=== PATIENT | female | born 1995 | race Caucasian/White ===

== ENCOUNTER 2019-04-10 21:59 | Emergency (ER) | payer SELFPAY ==
[2019-04-10 22:32] LABS: Urine Blood NEGATIVE (NEG); Urine Glucose NEGATIVE (NEG); Urine Protein NEGATIVE (NEG); Urine Specific Gravity 1.015 (1.005-1.030); Urine pH 5.5 (5.0-7.0)
[2019-04-11] MEDS ORDERED: NA CHLORIDE 0.9% 1,000 ML ONE (00:19)
[2019-04-11 00:48] LABS: Urine Bacteria <20 /HPF (<20); Urine Culture Reflex Order NOT NEEDED; Urine Mucus 1+ /HPF (NONE SEEN); Urine RBC <5 /HPF (NONE SEEN)
[2019-04-11 01:40] LABS: Absolute Neutrophil 8.1 K/uL (1.8-8.0); Basophils % 0.5 % (0-1.3); Eosinophils % 4.3 % (0-4.4); Hematocrit 38.1 % (36.0-45.0); Monocytes % 6.9 % (3.3-12.3); RBC Red Blood Cell Count 4.94 M/uL (3.86-4.86)
[2019-04-11 01:51] LABS: ALT/SGPT 16 U/L (12-78); AST/SGOT 13 U/L (15-37); Albumin 3.4 g/dL (3.4-5.0); Alkaline Phosphatase 72 U/L (45-117); BUN Blood Urea Nitrogen 14 mg/dL (7-18); Bicarbonate 24 mmol/L (21-32); Bilirubin Direct < 0.1 mg/dL (0-0.2); Bilirubin Total 0.3 mg/dL (0.2-1.0); Glucose Level 85 mg/dL (74-106); Lipase 146 U/L (73-393); Potassium 3.8 mmol/L (3.5-5.1); Protein, Total 6.7 g/dL (6.4-8.2); Sodium Level 142 mmol/L (136-145)
[2019-04-11] MEDS ORDERED: KETOROLAC 30 MG/ML INJ ONE (02:21)
[2019-04-11] MEDS ORDERED: AZITHROMYCIN 250 MG TAB ONE (04:21)
[2019-04-11] MEDS ORDERED: MORPHINE 2 MG/ML SYR ONE (04:21)
[2019-04-11] MEDS ORDERED: CEFTRIAXONE/SWI 1gm 1 GM/10 ML SYR ONE (04:22)
--- NOTE | 2019-04-11 04:27 | ER ---
Nurse's Notes [facility] Name: Yaz Bain Age: 23 yrs Sex: Female : 1995 Arrival Date: 04/10/2019 Time: 22:02 Bed 26 Private MD: Diagnosis: Abdominal and pelvic pain;Unspecified ovarian cysts-right ovary Presentation: 04/10 22:10 Presenting complaint: Patient states: I recently has a miscarriage and now I am having ed1 bad pains that drop me to the floor. Transition of care: patient was not received from another setting of care. Onset of symptoms was April 10, 2019. Risk Assessment: Do you want to hurt yourself or someone else? Patient reports no desire to harm self or others. Initial Sepsis Screen: Does the patient meet any 2 criteria? No. Patient's initial sepsis screen is negative. Does the patient have a suspected source of infection? No. Patient's initial sepsis screen is negative. Care prior to arrival: None. 22:10 Method Of Arrival: Ambulatory ed1 22:10 Acuity: JUAN 3 ed1 Triage Assessment: 22:12 General: Appears in no apparent distress. Behavior is calm, cooperative. Pain: ed1 Complains of pain in suprapubic area and right lower quadrant Pain currently is 8 out of 10 on a pain scale. GI: Abdomen is non-distended, Bowel sounds present X 4 quads. Patient currently denies diarrhea, nausea, vomiting. 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 - Social history:: Smoking status: Patient uses tobacco products, smokes one pack cigarettes per day. - Ebola Screening: : Patient negative for fever greater than or equal to 101.5 degrees Fahrenheit, and additional compatible Ebola Virus Disease symptoms Patient denies exposure to infectious person Patient denies travel to an Ebola-affected area in the 21 days before illness onset No symptoms or risks identified at this time. Screenin:20 Abuse screen: Denies threats or abuse. Denies injuries from another. Nutritional ca1 screening: No deficits noted. Tuberculosis screening: No symptoms or risk factors identified. Fall Risk None identified. Assessment: 23:20 General: Appears in no apparent distress. comfortable, Behavior is calm, cooperative, ca1 appropriate for age. Pain: Complains of pain in suprapubic area, right inguinal area and left inguinal area Pain radiates to low back area Pain currently is 4 out of 10 on a pain scale. at worst was 8 out of 10 on a pain scale. Pain began 2-3 days ago. Is intermittent. Neuro: Level of Consciousness is awake, alert, obeys commands, Oriented to person, place, time, situation. Cardiovascular: Heart tones S1 S2 present Capillary refill < 3 seconds Patient's skin is warm and dry. Respiratory: Airway is patent Respiratory effort is even, unlabored, Respiratory pattern is regular, symmetrical, Breath sounds are clear bilaterally. GI: Abdomen is round non-distended, Bowel sounds present X 4 quads. Abd is soft X 4 quads Abdomen is tender to palpation in right lower quadrant and left lower quadrant. : No deficits noted. No signs and/or symptoms were reported regarding the genitourinary system. EENT: No deficits noted. No signs and/or symptoms were reported regarding the EENT system. Derm: Skin is intact, is healthy with good turgor, Skin is pink, warm \T\ dry. Musculoskeletal: Circulation, motion, and sensation intact. Capillary refill < 3 seconds. 04/11 00:15 Reassessment: Patient appears in no apparent distress at this time. Patient and/or ca1 family updated on plan of care and expected duration. Pain level reassessed. Patient is alert, oriented x 3, equal unlabored respirations, skin warm/dry/pink. 00:24 Reassessment: DONE WITH CONTRAST. rv 01:45 Reassessment: awaiting still for CT scan. updated ekg technician thru phone. Reassessment: rv Patient appears in no apparent distress at this time. Patient and/or family updated on plan of care and expected duration. Pain level reassessed. Patient is alert, oriented x 3, equal unlabored respirations, skin warm/dry/pink. Patient is complaining of pain progression. referred to CARL Craft. 03:09 Reassessment: patient taken to CT scan. rv 04:20 Reassessment: Patient and/or family updated on plan of care and expected duration. Pain bb level reassessed. Patient is alert, oriented x 3, equal unlabored respirations, skin warm/dry/pink. pt notified Heather HENRY that she had abdominal pain after the pelvic exam pt medicated see MAR. Pt awaiting results of CT scan. 04:44 Reassessment: Patient is alert, oriented x 3, equal unlabored respirations, skin bb warm/dry/pink. pt verbalized understanding of and agrees to plan of care discharge instructions given pt assisted to exit via wheelchair accompanied by family Patient states feeling better. Vital Signs: 04/10 22:12 BP 125 / 67; Pulse 97; Resp 20; Temp 98.3(O); Pulse Ox 95% on R/A; Weight 79.83 kg; ed1 Height 5 ft. 8 in. (172.72 cm); Pain 8/10; 23:15 BP 122 / 76; Pulse 84; Resp 17 S; Temp 98.1(O); Pulse Ox 100% on R/A; ca1 04/11 01:04 BP 120 / 78; Pulse 76; Resp 17 S; Pulse Ox 100% on R/A; ca1 01:04 BP 117 / 65; Pulse 76; Resp 16 S; Temp 98.3(O); Pulse Ox 100% on R/A; ca1 01:30 BP 129 / 65; Pulse 84; Resp 17; Pulse Ox 98% ; rv 02:00 BP 118 / 57; Pulse 72; Resp 16; Temp 98; Pulse Ox 97% ; rv 02:30 BP 114 / 65; Pulse 73; Resp 15; Pulse Ox 97% ; rv 02:45 BP 110 / 65; Pulse 71; Resp 16; Pulse Ox 97% ; rv 04:21 BP 124 / 70; Pulse 64; Resp 16 S; Pulse Ox 100% on R/A; bb 04:44 Temp 97.8(O); bb 04/10 22:12 Body Mass Index 26.76 (79.83 kg, 172.72 cm) ed1 ED Course: 04/10 22:02 Patient arrived in ED. ds1 22:11 Triage completed. ed1 22:12 Arm band placed on left wrist. Patient placed in waiting room, Patient notified of wait ed1 time. 23:17 Nakul Jarrett PA is PHCP. cp 23:17 Nakul Tran MD is Attending Physician. cp 23:20 Patient has correct armband on for positive identification. Placed in gown. Bed in low ca1 position. Call light in reach. Side rails up X 1. Pulse ox on. NIBP on. Warm blanket given. 23:53 Shala Acosta, RN is Primary Nurse. ca1 04/11 00:00 Inserted saline lock: 20 gauge in right antecubital area, using aseptic technique. ca1 Blood collected. 03:42 CT Abd/Pelvis - W/Contrast: give oral contrast In Process Unspecified. EDMS 03:44 Assist provider with pelvic exam: Set up pelvic tray. Performed by Nakul HENRY bb Specimens sent to lab. Patient tolerated well. 03:50 CT completed. Patient tolerated procedure well. Patient moved to CT via stretcher. eh Patient moved back from CT. 04:19 GC (GONORR/CHLAMYDIA) Probe Sent. bb 04:26 Vinh Leblanc MD is Referral Physician. cp 04:46 IV discontinued, intact, bleeding controlled, No redness/swelling at site. Pressure bb dressing applied. Administered Medications: 00:09 Drug: NS 0.9% 1000 ml Route: IV; Rate: 1 bolus; Site: right antecubital; ca1 01:00 Follow up: IV Status: Completed infusion; IV Intake: 100ml bb 02:10 Drug: TORadol 30 mg Route: IVP; Site: right antecubital; rv 04:47 Follow up: Response: No adverse reaction bb 04:15 Drug: Zithromax 1 grams Route: PO; bb 04:47 Follow up: Response: No adverse reaction bb 04:15 Drug: morphine 2 mg Route: IVP; Site: right antecubital; bb 04:47 Follow up: Response: No adverse reaction; Pain is decreased bb 04:17 Drug: Rocephin 1 grams Route: IV; Rate: bolus; Site: right antecubital; bb 04:27 Follow up: IV Status: Completed infusion; IV Intake: 10ml bb Intake: 01:00 IV: 100ml; Total: 100ml. bb 04:27 IV: 10ml; Total: 110ml. bb Outcome: 04:27 Discharge ordered by . cp 04:45 Discharged to home via wheelchair, with family. bb 04:45 Condition: stable 04:45 Discharge instructions given to patient, Instructed on discharge instructions, follow up and referral plans. medication usage, Demonstrated understanding of instructions, follow-up care, medications, Prescriptions given X 4. 04:48 Patient left the ED. bb Signatures: Dispatcher [employer] EDMS Estrada Higuera Rebeca Hamilton ds1 Bridget Diaz RN RN bb Erna Sutton RN RN ed1 Nakul Jarrett PA PA cp Vicente, Ronaldo RN RN rv Shala Acosta RN RN ca1
--- NOTE | 2019-04-11 04:27 | EDPHYS ---
Physician Documentation [facility] Name: Yaz Bain Age: 23 yrs Sex: Female : 1995 Arrival Date: 04/10/2019 Time: 22:02 Bed 26 Private MD: OMAR Physician Nakul Tran HPI: 04/10 23:30 This 23 yrs old Female presents to ER via Ambulatory with complaints of cp Abdominal Pain. 23:30 The patient presents with abdominal pain in the lower abdomen. cp 23:30 Onset: The symptoms/episode began/occurred last month. The symptoms do not radiate. cp Associated signs and symptoms: Pertinent negatives: constipation, diarrhea, dysuria, fever, vaginal discharge, vomiting, vaginal bleeding. Patient reports recent and miscarriage last month and that pain started after miscarriage last month. Patient reports she believes she was due to having symptoms past pregnancies and admits she is currently using the Implanon for control and did not take a test. Patient denies any current vaginal bleeding and unsure of last menstrual cycle. 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 - Social history:: Smoking status: Patient uses tobacco products, smokes one pack cigarettes per day. - Ebola Screening: : Patient negative for fever greater than or equal to 101.5 degrees Fahrenheit, and additional compatible Ebola Virus Disease symptoms Patient denies exposure to infectious person Patient denies travel to an Ebola-affected area in the 21 days before illness onset No symptoms or risks identified at this time. ROS: 23:45 Constitutional: Negative for body aches, chills, fever, poor PO intake. cp 23:45 Eyes: Negative for injury, pain, redness, and discharge. cp 23:45 ENT: Negative for drainage from ear(s), ear pain, sore throat, difficulty swallowing, difficulty handling secretions. 23:45 Cardiovascular: Negative for chest pain, palpitations. 23:45 Respiratory: Negative for cough, shortness of breath, wheezing. 23:45 Abdomen/GI: Positive for abdominal pain, Negative for diarrhea, constipation, anorexia, black/tarry stool, rectal bleeding. 23:45 Back: Negative for pain at rest, pain with movement, radiated pain. 23:45 : Negative for urinary symptoms, flank pain, vaginal bleeding, vaginal discharge. 23:45 Skin: Negative for cellulitis, rash. 23:45 Neuro: Negative for altered mental status, headache, weakness. 23:45 All other systems are negative. Exam: 23:50 Constitutional: The patient appears in no acute distress, alert, awake, non-toxic, well cp developed, well nourished. 23:50 Head/Face: Normocephalic, atraumatic. cp 23:50 Eyes: Periorbital structures: appear normal, Conjunctiva: normal, no exudate, no injection, Lids and lashes: appear normal, bilaterally. 23:50 ENT: External ear(s): are unremarkable, Nose: is normal, Mouth: Lips: moist, Oral mucosa: pink and intact, moist, Posterior pharynx: is normal, airway is patent, no erythema, no exudate. 23:50 Chest/axilla: Inspection: normal, Palpation: is normal, no crepitus, no tenderness. 23:50 Cardiovascular: Rate: normal, Rhythm: regular. 23:50 Respiratory: the patient does not display signs of respiratory distress, Respirations: normal, no use of accessory muscles, no retractions, no splinting, no tachypnea, labored breathing, is not present, Breath sounds: are clear throughout, no decreased breath sounds, no stridor, no wheezing. 23:50 Abdomen/GI: Inspection: abdomen appears normal, Bowel sounds: active, all quadrants, Palpation: soft, in all quadrants, moderate abdominal tenderness, in the suprapubic area and right lower quadrant, rebound tenderness, is not appreciated, involuntary guarding, is not appreciated. 23:50 Back: pain, is absent, ROM is normal. 04/11 03:41 : Pelvic Exam: bimanual exam reveals cervical motion tenderness, os that is closed, cp uterine tenderness, right adnexal tenderness, no adnexal mass on right, no adnexal mass on left, discharge, white, yellow, the nurse was present for the exam, Sexual behavior: the patient is sexually active, and reports a single partner, method of control is implenom. Vital Signs: 04/10 22:12 BP 125 / 67; Pulse 97; Resp 20; Temp 98.3(O); Pulse Ox 95% on R/A; Weight 79.83 kg; ed1 Height 5 ft. 8 in. (172.72 cm); Pain 8/10; 23:15 BP 122 / 76; Pulse 84; Resp 17 S; Temp 98.1(O); Pulse Ox 100% on R/A; ca1 04/11 01:04 BP 120 / 78; Pulse 76; Resp 17 S; Pulse Ox 100% on R/A; ca1 01:04 BP 117 / 65; Pulse 76; Resp 16 S; Temp 98.3(O); Pulse Ox 100% on R/A; ca1 01:30 BP 129 / 65; Pulse 84; Resp 17; Pulse Ox 98% ; rv 02:00 BP 118 / 57; Pulse 72; Resp 16; Temp 98; Pulse Ox 97% ; rv 02:30 BP 114 / 65; Pulse 73; Resp 15; Pulse Ox 97% ; rv 02:45 BP 110 / 65; Pulse 71; Resp 16; Pulse Ox 97% ; rv 04:21 BP 124 / 70; Pulse 64; Resp 16 S; Pulse Ox 100% on R/A; bb 04:44 Temp 97.8(O); bb 04/10 22:12 Body Mass Index 26.76 (79.83 kg, 172.72 cm) ed1 MDM: 04/10 23:17 Patient medically screened. cp 04/11 00:00 Differential diagnosis: appendicitis, Endometriosis, Ovarian Torsion, Pelvic cp Inflammatory Disease, Pyelonephritis, Ureterolithiasis, urinary tract infection. 04:25 Data reviewed: vital signs, nurses notes, lab test result(s), radiologic studies, CT cp scan, and as a result, I will discharge patient. 04:25 Counseling: I had a detailed discussion with the patient and/or guardian regarding: the cp historical points, exam findings, and any diagnostic results supporting the discharge/admit diagnosis, lab results, radiology results, the need for outpatient follow up, an OB/Gyne specialist, to return to the emergency department if symptoms worsen or persist or if there are any questions or concerns that arise at home. Response to treatment: the patient's symptoms have markedly improved after treatment, and as a result, I will discharge patient. Special discussion: Based on the patient's Hx, exam, and Dx evaluation, there is no indication for emergent surgery or inpatient Tx. It is understood by the patient/guardian that if the Sx's persist or worsen they need to return immediately for re-evaluation. ED course: VSS. Pain improved with meds. Will discharge to home for continued monitoring. 04/10 22:25 Order name: Urine Dipstick--Ancillary (enter results); Complete Time: 23: ed1 04/10 22:25 Order name: Urine --Ancillary (enter results); Complete Time: : ed1 04/10 23:21 Order name: Urine Microscopic Only; Complete Time: 02:01 cp 04/11 02:02 Interpretation: Normal except: SQEPI 5-10. cp 04/10 23:30 Order name: Basic Metabolic Panel; Complete Time: 02:01 cp 04/11 02:02 Interpretation: Normal except: CL 110; GFR 85; CA 8.1. cp 04/10 23:30 Order name: CBC with Diff; Complete Time: 02:01 cp 04/11 03:25 Interpretation: Normal except: WBC 13.7; RBC 4.94; MCV 77.1; MCH 25.5; NEUT A 8.1; EOSA cp 0.6. 04/10 23:30 Order name: Creatinine for Radiology; Complete Time: 02:01 cp 04/10 23:30 Order name: Hepatic Function; Complete Time: 02:01 cp 04/11 02:02 Interpretation: Normal except: AST 13; A/G 1.0. cp 04/10 23:30 Order name: Lipase; Complete Time: 02:01 cp 04/10 23:30 Order name: Test, Serum; Complete Time: 02:01 cp 04/11 02:02 Interpretation: Reviewed. cp 04/10 23:32 Order name: CT Abd/Pelvis - W/Contrast: give oral contrast cp 04/11 03:45 Order name: GC (GONORR/CHLAMYDIA) Probe cp 04/11 03:45 Order name: Wet Prep cp 04/11 03:46 Order name: GC (Javier/Chl) Probe CX/URE EDMS 04/10 23:30 Order name: IV Saline Lock; Complete Time: 00:09 cp 04/10 23:30 Order name: Labs collected and sent; Complete Time: 00:09 cp Administered Medications: 00:09 Drug: NS 0.9% 1000 ml Route: IV; Rate: 1 bolus; Site: right antecubital; ca1 01:00 Follow up: IV Status: Completed infusion; IV Intake: 100ml bb 02:10 Drug: TORadol 30 mg Route: IVP; Site: right antecubital; rv 04:47 Follow up: Response: No adverse reaction bb 04:15 Drug: Zithromax 1 grams Route: PO; bb 04:47 Follow up: Response: No adverse reaction bb 04:15 Drug: morphine 2 mg Route: IVP; Site: right antecubital; bb 04:47 Follow up: Response: No adverse reaction; Pain is decreased bb 04:17 Drug: Rocephin 1 grams Route: IV; Rate: bolus; Site: right antecubital; bb 04:27 Follow up: IV Status: Completed infusion; IV Intake: 10ml bb Disposition: 06:31 Co-signature as Attending Physician, Nakul Tran MD I agree with the assessment and mamta plan of care. Disposition: 04/11/19 04:27 Discharged to Home. Impression: Abdominal and pelvic pain, Unspecified ovarian cysts - right ovary. - Condition is Stable. - Discharge Instructions: Ovarian Cyst, Pelvic Pain, Female. - Prescriptions for Ibuprofen 800 mg Oral Tablet - take 1 tablet by ORAL route every 8 hours As needed take with food; 30 tablet. Tylenol- Codeine #3 300-30 mg Oral Tablet - take 2 tablets by ORAL route every 8 hours As needed; 15 tablet. Doxycycline Hyclate 100 mg Oral Tablet - take 1 tablet by ORAL route every 12 hours; 20 tablet. Metronidazole 500 mg Oral Tablet - take 1 tablet by ORAL route every 8 hours; 30 tablet. - Medication Reconciliation Form, Thank You Letter, Antibiotic Education, Prescription Opioid Use form. - Follow up: Vinh Leblanc MD; When: 1 week; Reason: Recheck today's complaints. - Problem is new. - Symptoms have improved. Signatures: Dispatcher [employer] Nakul Cole MD MD cha Ballard, Brenda RN RN bb Erna Sutton RN RN ed1 Nakul Jarrett PA PA cp Vicente, Ronaldo RN RN rv Acob, Shala, RN RN ca1 Corrections: (The following items were deleted from the chart) 02:02 02:02 Normal except: CL 110; GFR 85. cp cp 03:25 02:02 Normal except: WBC 13.7; RBC 4.94; MCV 77.1; MCH 25.5; NEUT A 8.1. cp cp 04:48 04:27 04/11/2019 04:27 Discharged to Home. Impression: Abdominal and pelvic pain; bb Unspecified ovarian cysts - right ovary. Condition is Stable. Forms are Medication Reconciliation Form, Thank You Letter, Antibiotic Education, Prescription Opioid Use. Follow up: Vinh Leblanc; When: 1 week; Reason: Recheck today's complaints. Problem is new. Symptoms have improved. cp
[2019-04-11 05:12] VITALS: BP 124/70; TEMP 97.8; O2SAT 100
--- NOTE | 2019-04-11 10:18 | RAD REPORT ---
EXAM DESCRIPTION: CT Abdomen and Pelvis With Intravenous Contrast CLINICAL HISTORY: The patient is 23 years old and is Female; lower abdomen pain TECHNIQUE: Axial computed tomography images of the abdomen and pelvis with intravenous contrast. S agittal and coronal reformatted images were created and reviewed. This CT exam was performed using one or more of the following dose reduction techniques: automated exposure control, adjustment of t he mA and/or kV according to patient size, and/or use of iterative reconstruction technique. COMPARISON: No relevant prior studies available. FINDINGS: LUNG BASES: Unremarkable. No mass. No consolidation. ABDOMEN: LIVER: Unremarkable. No mass. GALLBLADDER AND BILE DUCTS: The gallbladder is contracted. PANCREAS: No ductal dilation. No mass. SPLEEN: Unremarkable. ADRENALS: Unremarkable. No mass. KIDNEYS AND URETERS: Unremarkable. No solid mass. No hydronephrosis. STOMACH AND BOWEL: The stomach is well distended with food contents. The small bowel is normal i n caliber. Oral contrast is present within the distal small bowel. Minimal contrast is noted within t he cecum. Stool is present throughout the colon. There is no mucosal thickening or evidence of bowel obstruction. PELVIS: APPENDIX: The appendix is normal in caliber without surrounding inflammation. BLADDER: The bladder is well distended. REPRODUCTIVE: A 2.9 cm right ovarian cyst is present. The uterus and left ovary are normal. ABDOMEN and PELVIS: INTRAPERITONEAL SPACE: Unremarkable. No free air. No significant fluid collection. BONES/JOINTS: No acute fracture. SOFT TISSUES: The soft tissues are normal. VASCULATURE: Unremarkable. No abdominal aortic aneurysm. LYMPH NODES: A few scattered central mesenteric and right lower quadrant lymph nodes are present . IMPRESSION: 1. No bowel obstruction. Normal appendix. 2. Few scattered mesenteric lymph nodes which may be secondary to mesenteric adenitis in the [facility] clinical setting. 3. Right ovarian cyst. No follow-up imaging recommended. Electronically signed by: Nicolasa Tavera MD 04/11/2019 3:53 AM CDT Due to temporary technical issues with the PACS/Fluency reporting system, reports are being signed by the in house radiologist as a courtesy to ensure prompt reporting. The interpreting radiologist is f ully responsible for the content of the report.
== END 2019-04-11 04:48 | disposition home or self-care (01) ==
LOC: ER 21:59
DX: N83.201 Unspecified ovarian cyst, right side (principal); F17.210 Nicotine dependence, cigarettes, uncomplicated; Z88.8 Allergy status to other drugs, medicaments and biological substances
CPT/HCPCS: 36415; 74177; 80048; 80076; 81003; 81015; 81025; 83690; 84703; 85025; 87210; 87490; 87590; 96361; 96374; 96375; 99285; J0696; J2270; J7030; Q9967

== ENCOUNTER 2019-06-14 18:57 | Emergency (ER) | payer OTHER, SELFPAY ==
--- OUTSIDE RECORDS SUMMARY | 2019-06-14 19:00 | XMS REPORT ---
:1995 [facility] Address [address] [place] [address] Care Team Providers Name Role Phone Unavailable Unavailable Unavailable Problems This patient has no known problems. Allergies, Adverse Reactions, Alerts This patient has no known allergies or adverse reactions. Medications This patient has no known medications.
[2019-06-14] MEDS ORDERED: NA CHLORIDE 0.9% 1,000 ML ONE (20:16)
[2019-06-14 20:19] LABS: Basophils % 0.4 % (0-1.3); Hematocrit 40.3 % (36.0-45.0); Lymphocytes % 31.2 % (15.3-44.8); MPV 8.7 fL (7.6-11.3); RBC Red Blood Cell Count 5.13 M/uL (3.86-4.86)
[2019-06-14 20:26] LABS: Potassium 3.9 mmol/L (3.5-5.1)
[2019-06-14 20:39] LABS: Specific Gravity 1.015 (1.005-1.030)
[2019-06-14 20:42] LABS: Urine Blood 3+ (NEG); Urine Glucose NEGATIVE (NEG); Urine Protein 2+ (NEG); Urine pH 5.5 (5.0-7.0)
--- NOTE | 2019-06-14 20:47 | ER ---
Nurse's Notes [facility] Name: Yaz Bain Age: 23 yrs Sex: Female : 1995 Arrival Date: 06/14/2019 Time: 19:02 Bed 13 Private MD: Diagnosis: Dysmenorrhea, unspecified Presentation: 06/14 19:03 Presenting complaint: Patient states: Vaginal bleeding for 2 months. Reports 1.5 pads aj per hour. Transition of care: patient was not received from another setting of care. Onset of symptoms was March 2019. Risk Assessment: Do you want to hurt yourself or someone else? Patient reports no desire to harm self or others. Initial Sepsis Screen: Does the patient meet any 2 criteria? No. Patient's initial sepsis screen is negative. Does the patient have a suspected source of infection? No. Patient's initial sepsis screen is negative. Care prior to arrival: None. 19:03 Method Of Arrival: Ambulatory aj 19:03 Acuity: JUAN 3 aj Triage Assessment: 19:04 General: Appears in no apparent distress. comfortable, Behavior is calm, cooperative, aj appropriate for age. Pain: Denies pain. Neuro: Level of Consciousness is awake, alert, obeys commands, Oriented to person, place, time, situation, Appropriate for age. Respiratory: Airway is patent Trachea midline Respiratory effort is even, unlabored, Respiratory pattern is regular, symmetrical. : Reports vaginal bleeding that is heavy flow. Derm: Skin is intact, is healthy with good turgor, Skin is pink, warm \T\ dry. normal. 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 - Social history:: Smoking status: Patient/guardian denies using tobacco. - Ebola Screening: : Patient negative for fever greater than or equal to 101.5 degrees Fahrenheit, and additional compatible Ebola Virus Disease symptoms Patient denies exposure to infectious person Patient denies travel to an Ebola-affected area in the 21 days before illness onset No symptoms or risks identified at this time. - Family history:: not pertinent. Screenin:00 Abuse screen: Denies threats or abuse. Denies injuries from another. Nutritional ak1 screening: No deficits noted. Tuberculosis screening: No symptoms or risk factors identified. Fall Risk None identified. Assessment: 19:50 General: Appears in no apparent distress. comfortable, Behavior is calm, cooperative, jb4 appropriate for age. Pain: Denies pain. Neuro: Level of Consciousness is awake, alert, obeys commands, Oriented to person, place, time, situation. Cardiovascular: Patient's skin is warm and dry. Respiratory: Airway is patent Respiratory effort is even, unlabored, Respiratory pattern is regular, symmetrical. GI: No signs and/or symptoms were reported involving the gastrointestinal system. : Reports vaginal bleeding that is bright red, heavy flow since 2 months. 19:50 EENT: No signs and/or symptoms were reported regarding the EENT system. Derm: Skin is jb4 intact, Skin is pink, warm \T\ dry. Musculoskeletal: Circulation, motion, and sensation intact. Range of motion: intact in all extremities. Vital Signs: 19:04 BP 128 / 70; Pulse 83; Resp 16; Temp 98.3; Pulse Ox 99% on R/A; Weight 83.91 kg; Height aj 5 ft. 8 in. (172.72 cm); 20:30 BP 112 / 65; Pulse 63; Resp 16; Pulse Ox 100% on R/A; jb4 20:50 BP 117 / 78 Supine; Pulse 61; lt1 20:50 BP 120 / 80 Sitting; Pulse 64; lt1 20:50 BP 124 / 74 Standing; Pulse 75; Resp 16; Temp 98.3(O); Pulse Ox 100% ; lt1 19:04 Body Mass Index 28.13 (83.91 kg, 172.72 cm) ED Course: 19:02 Patient arrived in ED. mr 19:04 Triage completed. aj 19:04 Arm band placed on left wrist. Patient placed in an exam room. aj 19:10 Dangelo Roy, NELL is Primary Nurse. jb4 19:23 Nakul Tran MD is Attending Physician. mamta 20:46 Terrell Morse MD is Referral Physician. mamta 21:00 No provider procedures requiring assistance completed. IV discontinued, intact, ak1 bleeding controlled, No redness/swelling at site. Pressure dressing applied, 20g IV to right AC discontinued prior to discharge. Administered Medications: 20:04 Drug: NS 0.9% 1000 ml Route: IV; Rate: 1 bolus; Site: right antecubital; jb4 21:00 Follow up: IV Status: Completed infusion; IV Intake: 1000ml ak1 Intake: 21:00 IV: 1000ml; Total: 1000ml. ak1 Outcome: 20:46 Discharge ordered by . mamta 21:00 Discharged to home ambulatory, with family. ak1 21:00 Condition: stable 21:00 Discharge instructions given to patient, family, Instructed on discharge instructions, follow up and referral plans. no drinking with medication, no driving heavy equipment, medication usage, safe sex practices, Demonstrated understanding of instructions, follow-up care, medications, Prescriptions given X 3. 21:01 Patient left the ED. ak1 Signatures: Sophia Sage, RN Nakul Walter MD MD cha Rivera, Mary mr Krenek, Hawa RN RN ak1 Dangelo Roy RN RN jb Ynes Perez [facility]
--- NOTE | 2019-06-14 20:48 | EDPHYS ---
Physician Documentation [facility] Name: Yaz Bain Age: 23 yrs Sex: Female : 1995 Arrival Date: 06/14/2019 Time: 19:02 Bed 13 Private MD: ED Physician Nakul Tran HPI: 06/14 20:06 This 23 yrs old Female presents to ER via Ambulatory with complaints of mamta Vaginal Bleeding, Dizziness. 20:06 The patient presents with vaginal bleeding that is. Onset: The symptoms/episode mamta began/occurred 2 month(s) ago. Modifying factors: The symptoms are alleviated by nothing, the symptoms are aggravated by nothing. Associated signs and symptoms: The patient has no apparent associated signs or symptoms. Severity of symptoms: At their worst the symptoms were mild, in the emergency department the symptoms are unchanged. The patient is sexually active, reportedly has a single partner. 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 - Social history:: Smoking status: Patient/guardian denies using tobacco. - Ebola Screening: : Patient negative for fever greater than or equal to 101.5 degrees Fahrenheit, and additional compatible Ebola Virus Disease symptoms Patient denies exposure to infectious person Patient denies travel to an Ebola-affected area in the 21 days before illness onset No symptoms or risks identified at this time. - Family history:: not pertinent. ROS: 20:06 Constitutional: Negative for fever, chills, and weight loss, Eyes: Negative for injury, mamta pain, redness, and discharge, ENT: Negative for injury, pain, and discharge, Neck: Negative for injury, pain, and swelling, Cardiovascular: Negative for chest pain, palpitations, and edema, Respiratory: Negative for shortness of breath, cough, wheezing, and pleuritic chest pain, Abdomen/GI: Negative for abdominal pain, nausea, vomiting, diarrhea, and constipation, Back: Negative for injury and pain, MS/Extremity: Negative for injury and deformity, Skin: Negative for injury, rash, and discoloration, Neuro: Negative for headache, weakness, numbness, tingling, and seizure, Psych: Negative for depression, anxiety, suicide ideation, homicidal ideation, and hallucinations, Allergy/Immunology: Negative for hives, rash, and allergies, Endocrine: Negative for neck swelling, polydipsia, polyuria, polyphagia, and marked weight changes, Hematologic/Lymphatic: Negative for swollen nodes, abnormal bleeding, and unusual bruising. 20:06 : Positive for vaginal bleeding. Exam: 20:06 Constitutional: This is a well developed, well nourished patient who is awake, alert, mamta and in no acute distress. Head/Face: Normocephalic, atraumatic. Eyes: Pupils equal round and reactive to light, extra-ocular motions intact. Lids and lashes normal. Conjunctiva and sclera are non-icteric and not injected. Cornea within normal limits. Periorbital areas with no swelling, redness, or edema. ENT: Nares patent. No nasal discharge, no septal abnormalities noted. Tympanic membranes are normal and external auditory canals are clear. Oropharynx with no redness, swelling, or masses, exudates, or evidence of obstruction, uvula midline. Mucous membranes moist. Neck: Trachea midline, no thyromegaly or masses palpated, and no cervical lymphadenopathy. Supple, full range of motion without nuchal rigidity, or vertebral point tenderness. No Meningismus. Chest/axilla: Normal chest wall appearance and motion. Nontender with no deformity. No lesions are appreciated. Cardiovascular: Regular rate and rhythm with a normal S1 and S2. No gallops, murmurs, or rubs. Normal PMI, no JVD. No pulse deficits. Respiratory: Lungs have equal breath sounds bilaterally, clear to auscultation and percussion. No rales, rhonchi or wheezes noted. No increased work of breathing, no retractions or nasal flaring. Abdomen/GI: Soft, non-tender, with normal bowel sounds. No distension or tympany. No guarding or rebound. No evidence of tenderness throughout. Back: No spinal tenderness. No costovertebral tenderness. Full range of motion. Skin: Warm, dry with normal turgor. Normal color with no rashes, no lesions, and no evidence of cellulitis. MS/ Extremity: Pulses equal, no cyanosis. Neurovascular intact. Full, normal range of motion. Neuro: Awake and alert, GCS 15, oriented to person, place, time, and situation. Cranial nerves II-XII grossly intact. Motor strength 5/5 in all extremities. Sensory grossly intact. Cerebellar exam normal. Normal gait. Psych: Awake, alert, with orientation to person, place and time. Behavior, mood, and affect are within normal limits. Vital Signs: 19:04 BP 128 / 70; Pulse 83; Resp 16; Temp 98.3; Pulse Ox 99% on R/A; Weight 83.91 kg; Height aj 5 ft. 8 in. (172.72 cm); 20:30 BP 112 / 65; Pulse 63; Resp 16; Pulse Ox 100% on R/A; jb4 20:50 BP 117 / 78 Supine; Pulse 61; lt1 20:50 BP 120 / 80 Sitting; Pulse 64; lt1 20:50 BP 124 / 74 Standing; Pulse 75; Resp 16; Temp 98.3(O); Pulse Ox 100% ; lt1 19:04 Body Mass Index 28.13 (83.91 kg, 172.72 cm) aj MDM: 19:23 Patient medically screened. [facility] 20:10 Data reviewed: vital signs, nurses notes, lab test result(s), CBC, electrolytes, mamta hepatic panel. 06/14 19:24 Order name: Abo/rh Typing; Complete Time: 20:45 [facility] 06/14 19:24 Order name: Basic Metabolic Panel; Complete Time: 20:45 [facility] 06/14 19:24 Order name: CBC with Diff; Complete Time: 20:45 [facility] 06/14 20:34 Order name: Urine Dipstick--Ancillary (enter results); Complete Time: 20:45 [facility] 06/14 20:35 Order name: Test, Urine; Complete Time: 20:45 [facility] 06/14 19:24 Order name: Urine Test (obtain specimen); Complete Time: 20:55 [facility] 06/14 19:24 Order name: IV Saline Lock; Complete Time: 20:05 [facility] 06/14 19:24 Order name: Labs collected and sent; Complete Time: 20:05 [facility] 06/14 19:24 Order name: NPO; Complete Time: 20:05 [facility] 06/14 19:24 Order name: Urine Dipstick-Ancillary (obtain specimen); Complete Time: 21:00 [facility] 06/14 20:06 Order name: Orthostatics; Complete Time: 20:55 [facility] Administered Medications: 20:04 Drug: NS 0.9% 1000 ml Route: IV; Rate: 1 bolus; Site: right antecubital; jb4 21:00 Follow up: IV Status: Completed infusion; IV Intake: 1000ml ak1 Disposition: 06/14/19 20:46 Discharged to Home. Impression: Dysmenorrhea, unspecified. - Condition is Stable. - Discharge Instructions: Dysmenorrhea, Pelvic Pain, Female, Dysfunctional Uterine Bleeding, Pelvic Pain, Female, [id number]. - Prescriptions for Ibuprofen 600 mg Oral Tablet - take 1 tablet by ORAL route every 8 hours As needed take with food; 21 tablet. Vitamin 27- 0.8 mg Oral Tablet - take 1 tablet by ORAL route once daily; 30 tablet. Tylenol- Codeine #3 300-30 mg Oral Tablet - take 2 tablets by ORAL route every 6 hours As needed; 14 tablet. - Medication Reconciliation Form, Thank You Letter, Antibiotic Education, Prescription Opioid Use form. - Follow up: Private Physician; When: 2 - 3 days; Reason: Recheck today's complaints, Continuance of care, Re-evaluation by your physician. Follow up: Terrell Morse MD; When: 2 - 3 days; Reason: Recheck today's complaints, Re-evaluation by your physician. - Problem is new. - Symptoms have improved. Signatures: Dispatcher [employer] EDSophia Torres RN RN aj Anderson, Corey, MD MD cha Krenek, Amber, RN RN ak1 Dangelo Roy RN RN jb4 Corrections: (The following items were deleted from the chart) 20:47 20:46 06/14/2019 20:46 Discharged to Home. Impression: Dysmenorrhea, unspecified. [facility] Condition is Stable. Discharge Instructions: Dysmenorrhea, Pelvic Pain, Female, Dysfunctional Uterine Bleeding, Pelvic Pain, Female, [id number]. Prescriptions for Ibuprofen 600 mg Oral Tablet - take 1 tablet by ORAL route every 8 hours As needed take with food; 21 tablet, Vitamin 27-0.8 mg Oral Tablet - take 1 tablet by ORAL route once daily; 30 tablet, Tylenol-Codeine #3 300-30 mg Oral Tablet - take 2 tablets by ORAL route every 6 hours As needed; 14 tablet. and Forms are Medication Reconciliation Form, Thank You Letter, Antibiotic Education, Prescription Opioid Use. Follow up: Private Physician; When: 2 - 3 days; Reason: Recheck today's complaints, Continuance of care, Re-evaluation by your physician. Problem is new. Symptoms have improved. [facility] 21:01 20:47 06/14/2019 20:46 Discharged to Home. Impression: Dysmenorrhea, unspecified. ak1 Condition is Stable. Discharge Instructions: Dysmenorrhea, Pelvic Pain, Female, Dysfunctional Uterine Bleeding, Pelvic Pain, Female, [id number]. Prescriptions for Ibuprofen 600 mg Oral Tablet - take 1 tablet by ORAL route every 8 hours As needed take with food; 21 tablet, Vitamin 27-0.8 mg Oral Tablet - take 1 tablet by ORAL route once daily; 30 tablet, Tylenol-Codeine #3 300-30 mg Oral Tablet - take 2 tablets by ORAL route every 6 hours As needed; 14 tablet. and Forms are Medication Reconciliation Form, Thank You Letter, Antibiotic Education, Prescription Opioid Use. Follow up: Private Physician; When: 2 - 3 days; Reason: Recheck today's complaints, Continuance of care, Re-evaluation by your physician. Follow up: Terrell Morse; When: 2 - 3 days; Reason: Recheck today's complaints, Re-evaluation by your physician. Problem is new. Symptoms have improved. [facility]
== END 2019-06-14 21:01 | disposition home or self-care (01) ==
LOC: ER 18:57
DX: N94.6 Dysmenorrhea, unspecified (principal)
CPT/HCPCS: 36415; 80048; 81003; 81025; 85025; 86900; 86901; 96360; 99283; J7030

== ENCOUNTER 2019-08-10 13:44 | Emergency (ER) | payer SELFPAY ==
--- OUTSIDE RECORDS SUMMARY | 2019-08-10 13:47 | XMS REPORT ---
:1995 [facility] [address] [place] [address] Care Team Providers Name Role Phone Unavailable Unavailable Unavailable Problems This patient has no known problems. Allergies, Adverse Reactions, Alerts This patient has no known allergies or adverse reactions. Medications This patient has no known medications.
[2019-08-10] MEDS ORDERED: ONDANSETRON 4 MG (ODT) TAB ONE (14:16)
[2019-08-10] MEDS ORDERED: IPRATROPIUM BROM 0.5MG/2.5ML ONE (14:23)
[2019-08-10] MEDS ORDERED: ALBUTEROL 2.5 MG/3 ML NEB SOL ONE (14:23)
[2019-08-10 15:21] LABS: Urine Blood 3+ (NEG); Urine Glucose NEGATIVE (NEG); Urine Protein 1+ (NEG); Urine Specific Gravity 1.025 (1.005-1.030); Urine pH 5.5 (5.0-7.0)
[2019-08-10] MEDS ORDERED: IBUPROFEN 400 MG TAB ONE (15:35)
--- NOTE | 2019-08-10 15:37 | ER ---
Nurse's Notes [facility] Name: Yaz Bain Age: 23 yrs Sex: Female : 1995 Arrival Date: 08/10/2019 Time: 13:47 Bed 28 Private MD: Diagnosis: Acute upper respiratory infection, unspecified Presentation: 08/10 13:51 Presenting complaint: N/V/D. headache, body aches, chills, subjective fever, abdominal hb pain, and painful productive cough with green sputum x 3 days. Tolerating fluids. Transition of care: patient was not received from another setting of care. Onset of symptoms was August 07, 2019. Risk Assessment: Do you want to hurt yourself or someone else? Patient reports no desire to harm self or others. Initial Sepsis Screen: Does the patient meet any 2 criteria? No. Patient's initial sepsis screen is negative. Does the patient have a suspected source of infection? No. Patient's initial sepsis screen is negative. Care prior to arrival: Medication(s) given: DayQuil at 0830. 13:51 Method Of Arrival: Ambulatory hb 13:51 Acuity: JUAN 4 hb Historical: - Allergies: 13:54 cherries; hb 13:54 Flexeril (Wheezing); wheezing; hb - Immunization history:: Adult Immunizations up to date. - Social history:: Smoking status: Patient uses tobacco products, denies chronic smoking, but will smoke occasionally. - Ebola Screening: : No symptoms or risks identified at this time. Screenin:46 Abuse screen: Denies threats or abuse. Denies injuries from another. Nutritional rv screening: No deficits noted. Tuberculosis screening: No symptoms or risk factors identified. Fall Risk None identified. Assessment: 14:45 General: Appears in no apparent distress. comfortable, Behavior is calm, cooperative. rv Pain: Denies pain. Neuro: Level of Consciousness is awake, alert, obeys commands, Oriented to person, place, time, situation. Cardiovascular: Patient's skin is warm and dry. Respiratory: Airway is patent Parent/caregiver reports the patient having cough that is persistent. GI: Abdomen is round non-distended, Reports nausea, vomiting. : No signs and/or symptoms were reported regarding the genitourinary system. EENT: No signs and/or symptoms were reported regarding the EENT system. Derm: Skin is intact. Musculoskeletal: No signs and/or symptoms reported regarding the musculoskeletal system. Vital Signs: 13:54 BP 138 / 76; Pulse 100; Resp 16; Temp 98.5; Pulse Ox 100% on R/A; Weight 76.2 kg; hb Height 5 ft. 7 in. (170.18 cm); Pain 6/10; 15:00 BP 119 / 64; Pulse 90; Resp 17; Pulse Ox 100% on R/A; rv 15:29 BP 111 / 65; Pulse 87; Resp 17; Pulse Ox 100% on R/A; rv 13:54 Body Mass Index 26.31 (76.20 kg, 170.18 cm) hb ED Course: 13:47 Patient arrived in ED. am2 13:53 Triage completed. hb 13:54 Arm band placed on. hb 13:57 Nakul Jarrett PA is PHCP. cp 13:57 Bonilla Collado MD is Attending Physician. cp 14:13 Ganga Villalta, NELL is Primary Nurse. rv 14:25 Strep Sent. rv 14:25 Influenza Screen (a \T\ B) Sent. rv 14:46 Patient has correct armband on for positive identification. Bed in low position. Call rv light in reach. Side rails up X 1. Pulse ox on. NIBP on. 15:45 No provider procedures requiring assistance completed. Patient did not have IV access rv during this emergency room visit. Administered Medications: 14:18 Drug: Zofran 4 mg Route: PO; rv 15:44 Follow up: Response: Nausea is decreased rv 14:25 Drug: Albuterol 2.5 mg Route: Inhalation; rv 15:44 Follow up: Response: No change in condition rv 14:25 Drug: AtroVENT Aerosol 0.5 mg Route: Inhalation; rv 15:44 Follow up: Response: No change in condition rv Outcome: 15:35 Discharge ordered by MD. cp 15:45 Discharged to home ambulatory. rv 15:45 Condition: good 15:45 Discharge instructions given to patient, Instructed on discharge instructions, follow up and referral plans. medication usage, Demonstrated understanding of instructions, follow-up care, medications, Prescriptions given X 3. 15:45 Patient left the ED. rv Signatures: Nakul Jarrett PA PA cp Baxter, Heather, RN RN Sophia Frank am2 Ganga Villalta, RN RN rv
--- NOTE | 2019-08-10 15:37 | EDPHYS ---
Physician Documentation [facility] Name: Yaz Bain Age: 23 yrs Sex: Female : 1995 Arrival Date: 08/10/2019 Time: 13:47 Bed 28 Private MD: ED Physician Bonilla Collado HPI: 08/10 14:15 This 23 yrs old Female presents to ER via Ambulatory with complaints of cp Cough, Diarrhea, Nausea/Vomiting. 14:15 The patient or guardian reports cough, that is intermittent, with productive sputum. cp Onset: The symptoms/episode began/occurred 3 day(s) ago. 14:15 Severity of symptoms: in the emergency department the symptoms are unchanged, despite cp home interventions. 14:15 Associated signs and symptoms: Pertinent negatives: chest pain, diarrhea, ear ache, cp active vomiting. Historical: - Allergies: 13:54 cherries; hb 13:54 Flexeril (Wheezing); wheezing; hb - Immunization history:: Adult Immunizations up to date. - Social history:: Smoking status: Patient uses tobacco products, denies chronic smoking, but will smoke occasionally. - Ebola Screening: : No symptoms or risks identified at this time. ROS: 14:20 Eyes: Negative for injury, pain, redness, and discharge. cp 14:20 ENT: Positive for sore throat, Negative for drainage from ear(s), ear pain, difficulty swallowing, difficulty handling secretions. 14:20 Neck: Negative for pain with movement, pain at rest, stiffness. 14:20 Cardiovascular: Negative for chest pain. 14:20 Respiratory: Positive for cough, with green sputum. 14:20 Abdomen/GI: Positive for nausea and vomiting, Negative for diarrhea, constipation. 14:20 Skin: Negative for rash. 14:20 Neuro: Positive for headache, Negative for altered mental status, weakness. 14:20 Constitutional: Positive for body aches, Negative for fever, poor PO intake. cp 14:20 All other systems are negative. Exam: 14:30 Constitutional: The patient appears in no acute distress, alert, awake, non-toxic, well cp developed, well nourished. 14:30 Head/Face: Normocephalic, atraumatic. cp 14:30 Eyes: Periorbital structures: appear normal, Conjunctiva: normal, no exudate, no injection, Lids and lashes: appear normal, bilaterally. 14:30 ENT: External ear(s): are unremarkable, Ear canal(s): are normal, clear, TM's: bulging, is not appreciated, bilaterally, dullness, bilaterally, erythema, is not appreciated, bilaterally, Nose: is normal, Mouth: Lips: moist, Oral mucosa: moist, Posterior pharynx: Airway: no evidence of obstruction, patent, Tonsils: no enlargement, no exudate, erythema, that is mild, exudate, is not appreciated. 14:30 Neck: ROM/movement: is normal, is supple, no meningismus, no nuchal rigidity, Lymph nodes: no appreciated lymphadenopathy. 14:30 Chest/axilla: Inspection: normal, Palpation: is normal, no crepitus, no tenderness. 14:30 Cardiovascular: Rate: tachycardic, Rhythm: regular. 14:30 Respiratory: the patient does not display signs of respiratory distress, Respirations: normal, no use of accessory muscles, no retractions, no splinting, no tachypnea, labored breathing, is not present, Breath sounds: decreased breath sounds, are not appreciated, stridor, is not appreciated, + upper airway congestion. wheezing: is not appreciated. 14:30 Abdomen/GI: Exam negative for discomfort, distension, guarding, Inspection: abdomen appears normal. 14:30 Skin: no rash present. Vital Signs: 13:54 BP 138 / 76; Pulse 100; Resp 16; Temp 98.5; Pulse Ox 100% on R/A; Weight 76.2 kg; hb Height 5 ft. 7 in. (170.18 cm); Pain 6/10; 15:00 BP 119 / 64; Pulse 90; Resp 17; Pulse Ox 100% on R/A; rv 15:29 BP 111 / 65; Pulse 87; Resp 17; Pulse Ox 100% on R/A; rv 13:54 Body Mass Index 26.31 (76.20 kg, 170.18 cm) hb MDM: 13:59 Patient medically screened. cp 14:30 Differential Diagnosis: Bronchitis Influenza Otitis Media Viral Syndrome Pneumonia. cp 15:35 Data reviewed: vital signs, nurses notes, lab test result(s). cp 15:35 Counseling: I had a detailed discussion with the patient and/or guardian regarding: the cp historical points, exam findings, and any diagnostic results supporting the discharge/admit diagnosis, lab results, to return to the emergency department if symptoms worsen or persist or if there are any questions or concerns that arise at home. Response to treatment: the patient's symptoms have mildly improved after treatment, and as a result, I will discharge patient. 08/10 14:16 Order name: Influenza Screen (a \T\ B) 08/10 14:16 Order name: Strep 08/10 14:52 Order name: Urine Dipstick--Ancillary (enter results) 08/10 14:52 Order name: Urine --Ancillary (enter results) 08/10 14:57 Order name: Group A Streptococcus Rapid Sc; Complete Time: 15:30 EDMS 08/10 15:05 Order name: Influenza Screen (A ; Complete Time: 15:30 EDMS 08/10 14:12 Order name: Urine Dipstick-Ancillary (obtain specimen); Complete Time: 14:17 08/10 14:12 Order name: Urine Test (obtain specimen); Complete Time: 14:17 08/10 15:27 Order name: Urine --Ancillary; Complete Time: 15:30 EDMS 08/10 15:27 Order name: Urine Dipstick-Ancillary; Complete Time: 15:30 EDMS Administered Medications: 14:18 Drug: Zofran 4 mg Route: PO; rv 15:44 Follow up: Response: Nausea is decreased rv 14:25 Drug: Albuterol 2.5 mg Route: Inhalation; rv 15:44 Follow up: Response: No change in condition rv 14:25 Drug: AtroVENT Aerosol 0.5 mg Route: Inhalation; rv 15:44 Follow up: Response: No change in condition rv Disposition: 08/11 07:59 Co-signature as Attending Physician, Bonilla Collado MD I agree with the assessment and kdr plan of care. Disposition: 08/10/19 15:35 Discharged to Home. Impression: Acute upper respiratory infection, unspecified. - Condition is Stable. - Discharge Instructions: Upper Respiratory Infection, Adult. - Prescriptions for Ibuprofen 800 mg Oral Tablet - take 1 tablet by ORAL route every 8 hours As needed take with food; 30 tablet. Tessalon Perles 100 mg Oral Capsule - take 2 capsule by ORAL route every 8 hours As needed; 20 capsule. Albuterol Sulfate 90 mcg/actuation - inhale 1-2 puff by INHALATION route every 4-6 hours; 1 Inhaler. - Medication Reconciliation Form, Thank You Letter, Antibiotic Education, Prescription Opioid Use form. - Work release form (08/10/19 15:50). cp - Follow up: Private Physician; When: 2 - 3 days; Reason: Worsening of condition. - Problem is new. - Symptoms have improved. Signatures: Dispatcher [employer] EDMS Bonilla Collado MD MD [facility] Nakul Jarrett PA PA cp Rosie Forbes, RN RN hb Ganga Villalta RN RN rv Corrections: (The following items were deleted from the chart) 08/10 15:45 15:35 08/10/2019 15:35 Discharged to Home. Impression: Acute upper respiratory rv infection, unspecified. Condition is Stable. Forms are Medication Reconciliation Form, Thank You Letter, Antibiotic Education, Prescription Opioid Use. Follow up: Private Physician; When: 2 - 3 days; Reason: Worsening of condition. Problem is new. Symptoms have improved. cp 22:12 14:20 Constitutional: Negative for fever, poor PO intake, cp cp 22:12 14:20 All other systems are negative, cp cp
[2019-08-10 17:05] VITALS: TEMP 98.5; O2SAT 100
[2019-08-10 17:07] VITALS: BP 111/65
== END 2019-08-10 15:45 | disposition home or self-care (01) ==
LOC: ER 13:44
DX: J06.9 Acute upper respiratory infection, unspecified (principal); Z91.018 Allergy to other foods; Z72.0 Tobacco use; Z88.8 Allergy status to other drugs, medicaments and biological substances
CPT/HCPCS: 81003; 81025; 87070; 87081; 87804; 99284

== ENCOUNTER 2024-04-30 22:05 | Emergency (ER) | payer OTHER, SELFPAY ==
--- OUTSIDE RECORDS SUMMARY | 2024-04-30 22:09 | XMS REPORT | Continuity of Care Document ---
Author Name Unknown Address [address] [facility] [address] [place], [place] [id number] [place], [place] [address]ect Address [address] [facility] [address] [place] [address] Care Team Providers Care Ring Sewer Name Role Phone JESSEE ALMONTE Attending Clinician Unavailable JESSEE ALMONTE Admitting Clinician Unavailable Payers Payer Name Policy Type Policy Number Effective Date Expirati on Date Source [id number] 1959 00:00:00 Allergies, Adverse Reactions, Alerts Allergy Name Allergy Type Status Severity Reaction(s) Onset Date Inactive Date Treating Clinician Comments Source Flexeril DA Active Severe [facility] (LUF/LI V/SA) Social History Smoking Status Start Date Stop Date Source Never smoker [facility] (LUF/[facility]UD[facility]/SA) Vital Signs Vital Name Observation Time Observation Value Comments S ource Height 2021-04-06 19:33:00 170.18 CM Weight 2021-04-06 19:33:00 91 KG O2% BldC Oximetry 2021-04-06 19:33:00 99 % [facility] (LUF/CLAUDIA/SA) BP Systolic 2021-04-06 19:33:00 141 mm[Hg] [facility] (LUF/CLAUDIA/SA) BP Diastolic 2021-04-06 19:33:00 81 mm[Hg] [facility] (LUF/CLAUDIA/SA) Height 2021-04-06 19:33:00 67 [in_i] [facility] (LUF/CLAUDIA/SA) Weight 2021-04-06 19:33:00 91 kg [facility] (LUF/CLAUDIA/SA) BMI (Body Mass Index) 2021-04-06 19:33:00 31.4 kg/m2 [facility] (LUF/CLAUDIA/SA) Body Temperature 2021-04-06 19:33:00 98.3 [degF] [facility] (LUF/CLAUDIA/SA) Pulse Rate 2021-04-06 19:33:00 101 /min [facility] (LUF/CLAUDIA/SA) Respiratory Rate 2021-04-06 19:33:00 20 /min [facility] (LUF/CLAUDIA/SA) Encounters Start Date/Time End Date/Time Encounter Type Admission Type Attending [facility] Care Facility Care Department Encounter ID Source 2021-04-06 18:49:00 2021-04-06 22:38:00 FALSE LABR BEFOR 37 WK GEST 3RD TRI 3 [facility] [id number] (LUF/LI V/SA) 2021-04-06 00:00:00 2021-04-06 00:00:00 Inpatient [facility] Mat, [address] [place] [address] [facility] [id number] [facility] (LUF/LI V/SA) 2021-04-06 00:00:00 2021-04-06 00:00:00 Inpatient [facility] Mat, [address], [place] [address] [facility] [id number] [facility] (LUF/LI V/SA) Results Test Description Test Time Test Comments Results Resul t Comments Source [place] 2021-04-06 20:59:00 Specimen: VaginalCollected: 04/06/2021 20:18 Status: Final Last Updated: 04/06/2021 20:59 WM (Final) (Final) No Yeast or Trichomonas seen [facility]
[2024-04-30] MEDS ORDERED: ONDANSETRON 4 MG/2 ML VIAL ONE (22:31)
[2024-04-30] MEDS ORDERED: KETOROLAC 30 MG/ML INJ ONE (22:31)
[2024-04-30] MEDS ORDERED: NA CHLORIDE 0.9% 1,000 ML ONE (22:32)
[2024-04-30 22:58] LABS: Absolute Basophils 0.1 K/uL (0-0.5); Absolute Eosinophils 0.4 K/uL (0-0.5); Absolute Lymphocytes (CBC) 3.4 K/uL (0.7-4.9); Absolute Monocytes 0.8 K/uL (0.1-1.3); Absolute Neutrophil 6.8 K/uL (1.8-8.0); Eosinophils % 3.7 % (0-4.4); Hematocrit 39.7 % (36.0-45.0); Hemoglobin 13.4 g/dL (12.0-15.0); Lymphocytes % 29.7 % (15.3-44.8); MCH 27.3 pg (27.0-35.0); MCHC 33.9 g/dL (32.0-36.0); MCV 80.4 fL (80-100); MPV 8.3 fL (7.6-11.3); Monocytes % 6.6 % (3.3-12.3); Platelets 269 thou/uL (152-406); RBC Red Blood Cell Count 4.93 M/uL (3.86-4.86); Red Cell Distribution Width 14.1 % (12.1-15.2)
[2024-04-30 23:01] LABS: Albumin 3.4 g/dL (3.4-5.0); Anion Gap 5.2 mEq/L (5.0-15.0); Bilirubin Total 0.2 mg/dL (0.2-1.0); Globulin 3.5 g/dL (2.3-3.5); Potassium 3.2 mEq/L (3.5-5.1); Protein, Total 6.9 g/dL (6.4-8.2)
[2024-05-01 00:40] LABS: Specific Gravity > 1.030 (1.005-1.030); Urine Bacteria >50 /HPF (<20); Urine Bilirubin NEGATIVE (Negative); Urine Blood Negative (Negative); Urine Clarity Turbid (Clear); Urine Color Yellow (Yellow); Urine Culture Reflex Order REFLEXED; Urine Glucose NEGATIVE (Negative); Urine Ketones TRACE (Negative); Urine Microscopic Reflex YN ORDER UMIC; Urine Mucus 2+ /HPF (None Seen); Urine Nitrite 2+ (Negative); Urine Protein TRACE (Negative); Urine RBC <5 /HPF (None Seen); Urine Urobilinogen Normal (Normal)
--- NOTE | 2024-05-01 01:15 | EDPHYS ---
Physician Documentation [facility] Name: Yaz Bain Age: 28 yrs Sex: Female : 1995 Arrival Date: 04/30/2024 Time: 22:05 Bed 5 Private MD: ED Physician Neal Francis HPI: 04/30 22:33 This 28 yrs old Female presents to ER via Ambulatory with complaints of Pain With kb Urination, BLOOD IN URINE, Abdominal Pain, Headache. 22:33 Pt is a 28 year old female who presents for intermittent hematuria that started at 1600 kb followed by dizziness, nausea, vomiting and left abd pain. Denies fever, dysuria, urinary frequency. . 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 Last tetanus immunization: up to date. - Infectious Disease History:: Denies. - Social history:: Smoking status: Patient reports the use of cigarette tobacco products, smokes one pack cigarettes per day. ROS: 22:34 Constitutional: As per HPI kb Exam: 22:34 Constitutional: This is a well developed, well nourished patient who is awake, alert, kb and in no acute distress. Head/Face: Normocephalic, atraumatic. ENT: Moist Mucous membranes Cardiovascular: Regular rate Respiratory: Respirations even and unlabored. No increased work of breathing. Talking in full sentences Skin: Warm, dry with normal turgor. Normal color. MS/ Extremity: Pulses equal, no cyanosis. Neurovascular intact. Full, normal range of motion. Neuro: Awake and alert, GCS 15, oriented to person, place, time, and situation. Moves all extremities. Normal gait. 22:34 Abdomen/GI: Inspection: abdomen appears normal, Bowel sounds: normal, Palpation: soft, in all quadrants, moderate abdominal tenderness, in the left upper quadrant and left lower quadrant, 22:34 Back: CVA tenderness, that is mild, is noted on the left, Vital Signs: 22:25 BP 114 / 71; Pulse 85; Resp 18; Temp 98; Pulse Ox 98% ; Weight 70.31 kg; Height 5 ft. 8 kb3 in. ; Pain 8/10; 23:00 BP 114 / 69; Pulse 72; Resp 18 S; Pulse Ox 100% on R/A; jw7 05/01 00:00 BP 114 / 76; Pulse 80; Resp 17 S; Pulse Ox 98% on R/A; jw7 01:25 BP 142 / 88; Pulse 94; Resp 16 S; Pulse Ox 100% on R/A; ha1 04/30 22:25 Body Mass Index 23.57 (70.31 kg, 172.72 cm) kb3 04/30 22:25 Pain Scale: Adult kb3 MDM: 04/30 22:11 Patient medically screened. kb 22:34 Data reviewed: vital signs, nurses notes. Historians other than the Patient: Parent: milena mother. 05/01 00:34 Differential diagnosis: UTI, kidney stone, diverticulitis, nonspecific abd pain. kb Transition of care: After a detail discussion of the patient's case, care is transferred to Neal Francis MD. 01:14 Differential diagnosis: UTI, kidney stone, ovarian cyst. Special discussion: I rn discussed with the patient/guardian in detail that at this point there is no indication for admission to the hospital. It is understood, however, that if the symptoms persist or worsen the patient needs to return immediately for re-evaluation. ED course: Urine shows UTI, CT without acute findings. I have personally reviewed all of the results, including but not limited to blood tests and imaging deemed necessary to safely discharge this patient at this time. All results given to and printed out for patient. I personally went over all the results with the patient and answered all questions. Patient will follow-up with PCP and or specialist as discussed. Return precautions given and understood.. 04/30 22:21 Order name: CBC with Diff; Complete Time: 23:17 kb 04/30 22:21 Order name: CMP; Complete Time: 23:05 kb 04/30 22:21 Order name: Lipase; Complete Time: 23:05 kb 04/30 22:21 Order name: Test, Urine; Complete Time: 00:58 kb 04/30 22:21 Order name: Urinalysis w/ reflexes; Complete Time: 00:58 kb 05/01 00:43 Order name: Urine Culture EDMS 04/30 22:22 Order name: CT Stone Protocol kb 04/30 22:22 Order name: IV Saline Lock; Complete Time: 22:40 kb 04/30 22:22 Order name: Labs collected and sent; Complete Time: 22:40 kb Administered Medications: 04/30 22:40 Drug: TORadol - Ketorolac IVP 15 mg IVP once Route: IVP; Site: left antecubital; ha1 23:00 Follow up: Response: No adverse reaction; Marked relief of symptoms; Pain is decreased ha1 22:41 Drug: NS 0.9% IV 1000 ml IV at 1 bolus Per protocol; 1000 mL bolus Route: IV; Rate: 1 ha1 bolus; Site: left antecubital; 05/01 00:15 Follow up: Response: No adverse reaction; IV Status: Completed infusion; IV Intake: ha1 1000ml 04/30 22:42 Drug: Ondansetron IVP 4 mg IVP once; over 2 minutes Route: IVP; Site: left antecubital; ha1 23:00 Follow up: Response: No adverse reaction; Marked relief of symptoms [facility] 05/01 01:28 Drug: Ciprofloxacin PO 500 mg PO once Route: PO; jw7 :28 Follow up: Response: No adverse reaction; Medication administered at discharge. jw7 01:28 Drug: [place] PO 10 mg-325 mg 1 tabs PO once Route: PO; jw7 :28 Follow up: Response: No adverse reaction; Medication administered at discharge. jw7 Disposition: 04:08 Co-signature as Attending Physician, Neal Francis MD I reviewed the patient's care rn provided by the Advanced Practice Provider and agree with the diagnosis and treatment plan. Disposition Summary: 05/01/24 01:14 Discharge Ordered Notes: Location: Home rn Problem: new rn Symptoms: have improved rn Condition: Stable rn Diagnosis - UTI/ Urinary tract infection, site not specified rn Followup: rn - With: Private Physician - When: As needed - Reason: Recheck today's complaints, Re-evaluation by your physician Discharge Instructions: - Discharge Summary Sheet rn - Urinary Tract Infection, Adult rn Forms: - Medication Reconciliation Form rn - Antibiotic rn labor and delivery - Prescription Opioid Use rn - Patient Portal Instructions rn - Leadership Thank You Letter rn Prescriptions: - Pyridium 200 mg Oral Tablet - take 1 tablet ORAL route every 8 hours for 3 days; 9 tablet; Refills: 0, rn Product Selection Permitted - Cipro 500 mg Oral Tablet - take 1 tablet ORAL route every 12 hours for 7 days; 14 tablet; Refills: 0, rn Product Selection Permitted Signatures: Dispatcher [employer] EDMS Katherine Denson, ELECTROGALVANIZING MACHINE OPERATOR-C ELECTROGALVANIZING MACHINE OPERATOR-Ckb Neal Francis MD MD rn Waits, Jodi, RN RN jw7 Matilde Woodward RN RN ha1 Felipa Houser RN RN kb3 Corrections: (The following items were deleted from the chart) 04/30 22:22 22:22 CBC+H.LAB.BRZ ordered. EDMS EDMS 22:22 22:22 COMPREHENSIVE METABOLIC PANEL+C.LAB.BRZ ordered. EDMS EDMS 22:22 22:22 LIPASE+C.LAB.BRZ ordered. EDMS EDMS 22:22 22:22 Test, Urine+UC.LAB.BRZ ordered. EDMS EDMS 22:22 22:22 Urinalysis+U.LAB.BRZ ordered. EDMS EDMS 22:30 22:28 Home Meds: Albuterol Inhl; kb3 kb3 22:30 22:28 Home Meds: control implant; kb3 kb3
--- NOTE | 2024-05-01 01:15 | ER ---
Nurse's Notes [facility] Name: Yaz Bain Age: 28 yrs Sex: Female : 1995 Arrival Date: 04/30/2024 Time: 22:05 Bed 5 Private MD: Diagnosis: UTI/ Urinary tract infection, site not specified Presentation: 04/30 22:25 Chief complaint: Patient states: Pt reports abdominal pain, N/V/D and dizziness x3 kb3 hours. Reports blood with urination since 1500. Coronavirus screen: Vaccine status: Patient reports being unvaccinated. Client denies travel out of the [place] in the last 14 days. Ebola Screen: Patient negative for fever greater than or equal to 101.5 degrees Fahrenheit, and additional compatible Ebola Virus Disease symptoms Patient denies exposure to infectious person. Patient denies travel to an Ebola-affected area in the 21 days before illness onset. Initial Sepsis Screen: Does the patient meet any 2 criteria? No. Patient's initial sepsis screen is negative. Does the patient have a suspected source of infection? No. Patient's initial sepsis screen is negative. Risk Assessment: Do you want to hurt yourself or someone else? Patient reports no desire to harm self or others. Onset of symptoms was April 30, 2024 at 15:00. 22:25 Method Of Arrival: Ambulatory kb3 22:25 Acuity: JUAN 3 kb3 Triage Assessment: 22:28 General: Appears in no apparent distress. Behavior is calm, cooperative. Pain: kb3 Complains of pain in left lower quadrant Pain does not radiate. Pain currently is 10 out of 10 on a pain scale. GI: Reports lower abdominal pain, diarrhea, nausea, vomiting. : Reports vaginal bleeding that is bright red. 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 Last tetanus immunization: up to date. - Infectious Disease History:: Denies. - Social history:: Smoking status: Patient reports the use of cigarette tobacco products, smokes one pack cigarettes per day. Screenin:30 [facility] ED Fall Risk Assessment (Adult) History of falling in the last 3 months, jw7 including since admission No falls in past 3 months (0 pts) Confusion or Disorientation No (0 pts) Intoxicated or Sedated No (0 pts) Impaired Gait No (0 pts) Mobility Assist Device Used No (0 pt) Altered Elimination No (0 pt) Score/Fall Risk Level 0 - 2 = Low Risk Oriented to surroundings, Maintained a safe environment, Educated pt \T\ family on fall prevention, incl call for assistance when getting out of bed. Abuse screen: Denies threats or abuse. Denies injuries from another. Nutritional screening: No deficits noted. Tuberculosis screening: No symptoms or risk factors identified. Assessment: 22:12 General: Appears uncomfortable, Behavior is calm, cooperative. Pain: Complains of pain ha1 in left upper quadrant Pain does not radiate. Pain currently is 7 out of 10 on a pain scale. Quality of pain is described as aching, crampy, Pain began 1 day ago. Neuro: Level of Consciousness is awake, alert, obeys commands, Oriented to person, place, time, situation, Reports weakness in GENERALIZED. Cardiovascular: Capillary refill < 3 seconds Patient's skin is warm and dry. Respiratory: Airway is patent Respiratory effort is even, unlabored, Respiratory pattern is regular, symmetrical. GI: Abdomen is round non-distended, Bowel sounds present X 4 quads. Abd is soft and non tender X 4 quads. : Reports BLOOD IN THE URINE. Derm: Skin is pink, warm \T\ dry. Musculoskeletal: Circulation, motion, and sensation intact. Range of motion: intact in all extremities. 23:33 Reassessment: Patient appears in no apparent distress at this time. Patient and/or jw7 family updated on plan of care and expected duration. Pain level reassessed. Patient is alert, oriented x 3, equal unlabored respirations, skin warm/dry/pink. 05/01 00:30 Reassessment: Patient appears in no apparent distress at this time. Patient and/or jw7 family updated on plan of care and expected duration. Pain level reassessed. Patient is alert, oriented x 3, equal unlabored respirations, skin warm/dry/pink. 01:24 Reassessment: Patient and/or family updated on plan of care and expected duration. Pain ha1 level reassessed. Patient is alert, oriented x 3, equal unlabored respirations, skin warm/dry/pink. Patient states feeling better. Patient states symptoms have improved. Vital Signs: 04/30 22:25 BP 114 / 71; Pulse 85; Resp 18; Temp 98; Pulse Ox 98% ; Weight 70.31 kg; Height 5 ft. 8 kb3 in. ; Pain 8/10; 23:00 BP 114 / 69; Pulse 72; Resp 18 S; Pulse Ox 100% on R/A; jw7 05/01 00:00 BP 114 / 76; Pulse 80; Resp 17 S; Pulse Ox 98% on R/A; jw7 01:25 BP 142 / 88; Pulse 94; Resp 16 S; Pulse Ox 100% on R/A; ha1 04/30 22:25 Body Mass Index 23.57 (70.31 kg, 172.72 cm) kb3 04/30 22:25 Pain Scale: Adult kb3 ED Course: 04/30 22:10 Patient arrived in ED. gm2 22:11 Katherine Denson FNP-C [facility]. kb 22:11 Neal Francis MD is Attending Physician. kb 22:28 Triage completed. kb3 22:28 Arm band placed on right wrist. Patient placed in an exam room, on a stretcher. kb3 22:30 Patient has correct armband on for positive identification. Bed in low position. Call [facility] light in reach. Provided Education on: Use of Call Light. 22:38 Door closed. Noise minimized. Lights dimmed. kmf 22:38 Inserted saline lock: 20 gauge in left antecubital area, using aseptic technique. Blood kmf collected. 22:38 Initial lab(s) drawn, by me, sent to lab. kmf 22:41 CBC with Diff Sent. ha1 22:41 CMP Sent. ha1 22:41 Lipase Sent. ha1 22:43 Client placed on continuous cardiac and pulse oximetry monitoring. NIBP monitoring kmf applied. night monitor on. 05/01 00:08 Urinalysis w/ reflexes Sent. kmf 00:08 Test, Urine Sent. kmf 00:08 Urine collected: clean catch specimen, cloudy. km 00:44 CT Stone Protocol In Process Unspecified. EDMS 01:24 No provider procedures requiring assistance completed. IV discontinued, intact, ha1 bleeding controlled, No redness/swelling at site. Pressure dressing applied. Administered Medications: 04/30 22:40 Drug: TORadol - Ketorolac IVP 15 mg IVP once Route: IVP; Site: left antecubital; ha1 23:00 Follow up: Response: No adverse reaction; Marked relief of symptoms; Pain is decreased ha1 22:41 Drug: NS 0.9% IV 1000 ml IV at 1 bolus Per protocol; 1000 mL bolus Route: IV; Rate: 1 ha1 bolus; Site: left antecubital; 05/01 00:15 Follow up: Response: No adverse reaction; IV Status: Completed infusion; IV Intake: ha1 1000ml 04/30 22:42 Drug: Ondansetron IVP 4 mg IVP once; over 2 minutes Route: IVP; Site: left antecubital; ha1 23:00 Follow up: Response: No adverse reaction; Marked relief of symptoms ha1 05/01 01:28 Drug: Ciprofloxacin PO 500 mg PO once Route: PO; jw7 01:28 Follow up: Response: No adverse reaction; Medication administered at discharge. jw7 01:28 Drug: Hagaman PO 10 mg-325 mg 1 tabs PO once Route: PO; jw7 01:28 Follow up: Response: No adverse reaction; Medication administered at discharge. jw7 Medication: 01:24 VIS not applicable for this client. ha1 Intake: 00:15 IV: 1000ml; Total: 1000ml. [facility] Outcome: 01:14 Discharge ordered by . rn 01:24 Discharged to home ambulatory, with family, [facility] :24 Condition: stable 01:24 Discharge instructions given to patient, family, Instructed on discharge instructions, follow up and referral plans. medication usage, Demonstrated understanding of instructions, follow-up care, medications, Prescriptions given X 2, 01:29 Patient left the ED. jw7 Addendum: 05/04/2024 09:14 Addendum: Culture Results: Positive urine culture. No further action required. Bacteria s s sensitive to prescribed antibiotic. Signatures: Dispatcher [employer] EDMS Katherine Denson, CORRECTIONAL CASEWORK SPECIALIST-C CORRECTIONAL CASEWORK SPECIALIST-Neal Velasquez MD MD rn Blanchard, Shelby, RN RN Steff Ly RN RN jw7 Matilde Woodward RN RN ha1 Felipa Houser RN RN kb3 Carissa Melchor [facility] Camille Calderon [facility] Corrections: (The following items were deleted from the chart) 04/30 22:30 22:28 Home Meds: Albuterol Inhl; kb3 kb3 22:30 22:28 Home Meds: control implant; kb3 kb3
[2024-05-01] MEDS ORDERED: HYDROCODONE/APAP 10/325 TAB ONE (01:22)
[2024-05-01] MEDS ORDERED: CIPROFLOXACIN HCL 500 MG TAB ONE (01:22)
[2024-05-01 01:39] VITALS: BP 142/88; TEMP 98; O2SAT 100
--- NOTE | 2024-05-01 13:58 | RAD REPORT ---
EXAM DESCRIPTION: Stone Protocol CLINICAL HISTORY: 28 years Female, Flank pain;Abd pain TECHNIQUE: Helical CT axial images are obtained from the lung bases to the pubic symphysis without I V contrast. No oral contrast was administered. Multiplanar reconstruction. This exam was performed ac cording to our departmental dose-optimization program, which includes automated exposure control, adj ustment of the mA and/or kV according to patient size and/or use of iterative reconstruction techniqu e. COMPARISON: 04/11/2019 FINDINGS: LUNG BASES: No basilar consolidation or effusions. LIVER: Normal in size. Normal attenuation. No focal masses. HEPATOBILIARY: Partially contracted gallbladder. No intra- or extrahepatic ductal dilatation. SPLEEN: Normal size. PANCREAS: Normal size and contour. No focal mass. ADRENAL GLANDS: Normal size. No adrenal masses. KIDNEYS: Bilateral kidneys are normal in size without obstructing calculi or hydronephrosis. No nep hrolithiasis. No significant cysts are present. BOWEL AND MESENTERY: No small or large bowel dilatation. No colonic diverticulosis. Normal appendix. No abnormal mesenteric lymphadenopathy. No free fluid or pneumoperitoneum. RETROPERITONEUM: Normal caliber abdominal aorta without aneurysm. No abnormal retroperitoneal lymphad enopathy. PELVIS: Urinary bladder is suboptimally distended. Uterus and adnexal regions are unremarkable. B ilateral tubal ligation clips. ABDOMINAL WALL: The abdominal wall is intact. BONES: No suspicious osseous lytic or blastic lesions seen. IMPRESSION: 1. No nephroureterolithiasis or obstructive uropathy. 2. No acute intra-abdominal or pelvic disease. Normal appendix. Electronically signed by: Terrell Lakhani MD 05/01/2024 01:04 AM CDT N Due to temporary technical issues with the PACS/Fluency reporting system, reports are being signed by the in house radiologist without review as a courtesy to ensure prompt reporting. The interpreting r adiologist is fully responsible for the content of the report.
== END 2024-05-01 01:29 | disposition home or self-care (01) ==
LOC: ER 22:05
DX: N39.0 Urinary tract infection, site not specified (principal)
CPT/HCPCS: 36415; 74176; 76377; 80053; 81001; 81025; 83690; 85025; 87077; 87086; 87088; 87186; 96361; 96374; 96375; 99285; J2405; J7030

== ENCOUNTER 2024-08-07 14:16 | Emergency (ER) | payer SELFPAY ==
--- NOTE | 2024-08-07 15:16 | ER ---
Nurse's Notes [facility] Name: Yaz Bain Age: 28 yrs Sex: Female : 1995 Arrival Date: 08/07/2024 Time: 14:16 Bed DIS2 Private MD: Diagnosis: Viral infection, unspecified Presentation: 08/07 14:33 Chief complaint: Patient states: "I was around someone who had COVID and now I'm N/V mb9 and intermittent fever.". Coronavirus screen: Vaccine status: Patient reports being unvaccinated. Ebola Screen: No symptoms or risks identified at this time. Initial Sepsis Screen: Does the patient meet any 2 criteria? No. Patient's initial sepsis screen is negative. Does the patient have a suspected source of infection? No. Patient's initial sepsis screen is negative. Risk Assessment: Do you want to hurt yourself or someone else? Patient reports no desire to harm self or others. Onset of symptoms was August 07, 2024. 14:33 Method Of Arrival: Ambulatory 9 14:33 Acuity: JUAN 4 mb9 Triage Assessment: 14:34 General: Appears in no apparent distress. Behavior is calm. Pain: Denies pain. EENT: mb9 Throat is pink. Neuro: [place] Agitation-Sedation Scale (RASS): 0 - Alert and Calm Level of Consciousness is awake, alert, obeys commands, Oriented to person, place, time, situation, Appropriate for age. Cardiovascular: Patient's skin is warm and dry. Respiratory: Airway is patent Respiratory effort is even, unlabored, Respiratory pattern is regular, symmetrical, Breath sounds are clear bilaterally. GI: Reports nausea, vomiting. GI: Abdomen is flat, non-distended. : No signs and/or symptoms were reported regarding the genitourinary system. Derm: Skin is pink, warm \\T\\ dry. Musculoskeletal: Range of motion: intact in all extremities. Historical: - Allergies: 14:33 cherries; mb9 14:33 Flexeril (Wheezing); wheezing; mb9 - Home Meds: 14:33 control implant [Active]; Albuterol Inhl [Active]; mb9 - PMHx: 14:33 Asthma; Bipolar disorder; Schizophrenia; seasonal allergies; mb9 - PSHx: 14:33 BTL; mb9 - Immunization history:: Adult Immunizations up to date. - Infectious Disease History:: Denies. - Social history:: Smoking status: Patient reports the use of cigarette tobacco products, smokes one-half pack cigarettes per day. Screenin:35 [facility] ED Fall Risk Assessment (Adult) History of falling in the last 3 months, mb9 including since admission No falls in past 3 months (0 pts) Confusion or Disorientation No (0 pts) Intoxicated or Sedated No (0 pts) Impaired Gait No (0 pts) Mobility Assist Device Used No (0 pt) Altered Elimination No (0 pt) Score/Fall Risk Level 0 - 2 = Low Risk Oriented to surroundings, Maintained a safe environment, Educated pt \\T\\ family on fall prevention, incl call for assistance when getting out of bed. Abuse screen: Denies threats or abuse. Nutritional screening: No deficits noted. Tuberculosis screening: No symptoms or risk factors identified. Assessment: 14:35 Reassessment: see triage assessment. mb9 Vital Signs: 14:33 Resp 18; Temp 98.3; Weight 79.38 kg; Height 5 ft. 6 in. ; mb9 14:44 BP 131 / 76; Pulse Ox 99% on R/A; cc6 14:33 Body Mass Index 28.25 (79.38 kg, 167.64 cm) mb9 ED Course: 14:22 Patient arrived in ED. im 14:24 Juliane Girard MD is Attending Physician. gb1 14:32 Alyssa Hassan, NELL is Primary Nurse. mb9 14:33 Arm band placed on. mb9 14:34 Triage completed. mb9 14:36 Bed in low position. Call light in reach. Side rails up X 1. Provided Education on: mb9 press call light if needing anything. Client placed on continuous cardiac and pulse oximetry monitoring. NIBP monitoring applied. 15:35 No provider procedures requiring assistance completed. Patient did not have IV access mb9 during this emergency room visit. Administered Medications: No medications were administered Medication: 14:36 VIS not applicable for this client. mb9 Outcome: 15:16 Discharge ordered by . gb1 15:35 Discharged to home ambulatory, mb9 15:35 Condition: stable 15:35 Discharge instructions given to patient, Instructed on discharge instructions, follow up and referral plans. Demonstrated understanding of instructions, follow-up care, 15:35 Patient left the ED. mb9 Signatures: Alyssa Hassan RN RN mb9 Francoise Lake Gina, MD MD gb1 Katty Hernandez cc6
--- NOTE | 2024-08-07 15:35 | EDPHYS ---
Physician Documentation [facility] Name: Yaz Bain Age: 28 yrs Sex: Female : 1995 Arrival Date: 08/07/2024 Time: 14:16 Bed DIS2 Private MD: ED Physician Juliane Girard HPI: 08/07 15:20 This 28 yrs old Female presents to ER via Ambulatory with complaints of Flu gb1 Symptoms. 15:18 28-year-old female who states that she, degenerative labral she just feels gb1 rundown with malaise. No fever she has had chills for last 3 days. Symptoms started 3 days ago. She had contact with COVID positive friend. Patient denies any diarrhea or nausea vomiting.. Historical: - Allergies: 14:33 cherries; mb9 14:33 Flexeril (Wheezing); wheezing; mb9 - Home Meds: 14:33 control implant [Active]; Albuterol Inhl [Active]; mb9 - PMHx: 14:33 Asthma; Bipolar disorder; Schizophrenia; seasonal allergies; mb9 - PSHx: 14:33 BTL; mb9 - Immunization history:: Adult Immunizations up to date. - Infectious Disease History:: Denies. - Social history:: Smoking status: Patient reports the use of cigarette tobacco products, smokes one-half pack cigarettes per day. Exam: 15:18 Constitutional: This is a well developed, well nourished patient who is awake, alert, gb1 and in no acute distress. Head/Face: Normocephalic, atraumatic. Eyes: Pupils equal round and reactive to light, extra-ocular motions intact. Lids and lashes normal. Conjunctiva and sclera are non-icteric and not injected. Cornea within normal limits. Periorbital areas with no swelling, redness, or edema. ENT: Nares patent. No nasal discharge, no septal abnormalities noted. Tympanic membranes are normal and external auditory canals are clear. Oropharynx with no redness, swelling, or masses, exudates, or evidence of obstruction, uvula midline. Mucous membranes moist. Neck: Trachea midline, no thyromegaly or masses palpated, and no cervical lymphadenopathy. Supple, full range of motion without nuchal rigidity, or vertebral point tenderness. No Meningismus. Chest/axilla: Normal chest wall appearance and motion. Nontender with no deformity. No lesions are appreciated. Cardiovascular: Regular rate and rhythm with a normal S1 and S2. No gallops, murmurs, or rubs. Normal PMI, no JVD. No pulse deficits. Respiratory: Lungs have equal breath sounds bilaterally, clear to auscultation and percussion. No rales, rhonchi or wheezes noted. No increased work of breathing, no retractions or nasal flaring. Abdomen/GI: Soft, non-tender, with normal bowel sounds. No distension or tympany. No guarding or rebound. No evidence of tenderness throughout. Skin: Warm, dry with normal turgor. Normal color with no rashes, no lesions, and no evidence of cellulitis. MS/ Extremity: Pulses equal, no cyanosis. Neurovascular intact. Full, normal range of motion. Neuro: Awake and alert, GCS 15, oriented to person, place, time, and situation. Cranial nerves II-XII grossly intact. Motor strength 5/5 in all extremities. Sensory grossly intact. Cerebellar exam normal. Normal gait. Vital Signs: 14:33 Resp 18; Temp 98.3; Weight 79.38 kg; Height 5 ft. 6 in. ; mb9 14:44 BP 131 / 76; Pulse Ox 99% on R/A; cc6 14:33 Body Mass Index 28.25 (79.38 kg, 167.64 cm) mb9 MDM: 14:30 Patient medically screened. gb1 15:18 Differential diagnosis: flu, URI, COVID-19. Data reviewed: vital signs, nurses notes. gb1 ED course: 28-year-old female with presumed COVID-19 versus other viral URI. I doubt acute focal pneumonia or UTI. I doubt early sepsis at this time. Patient appears well with normal respiratory rate no signs of increased work of breathing.. Administered Medications: No medications were administered Disposition Summary: 08/07/24 15:16 Discharge Ordered Notes: Location: Home gb1 Problem: new gb1 Symptoms: are unchanged gb1 Condition: Stable gb1 Diagnosis - Viral infection, unspecified gb1 Followup: gb1 - With: Private Physician - When: 1 week - Reason: Recheck today's complaints Discharge Instructions: - Discharge Summary Sheet mb9 - Viral Encephalitis gb1 - Viral Illness, Adult gb1 Forms: - Work release form mb9 - Medication Reconciliation Form gb1 - Antibiotic Education gb1 - Prescription Opioid Use gb1 - Patient Portal Instructions gb1 - Leadership Thank You Letter gb1 Signatures: Alyssa Hassan RN RN mb9 ShajiJuliane MD MD gb1
[2024-08-07 15:40] VITALS: TEMP 98.3
[2024-08-07 15:41] VITALS: BP 131/76; O2SAT 99
== END 2024-08-07 15:35 | disposition home or self-care (01) ==
LOC: ER 14:16
DX: B34.9 Viral infection, unspecified (principal); F17.210 Nicotine dependence, cigarettes, uncomplicated
CPT/HCPCS: 99283